=== PATIENT | female | born 2000 | race Caucasian/White ===

== ENCOUNTER 2021-05-25 11:50 | Observation (INO) | payer SELFPAY ==
[2021-05-25] VITALS (8 sets, daily range): BP systolic 79–113; BP diastolic 47–70; PULSE 66–87; TEMP 97.7–98
[~2021-05-25 11:50] MED LIST: IBU800 M1 PO; MACROBID 1100 MG/CAP PO; NEXIUM 20MG20 MG PO; PHENERGAN 25 TA25 MG PO
--- NOTE | 2021-05-25 12:36 | NUR ---
PT. AMBULATORY TO UNIT FOR D&C W/ DR. GONG. ESCORTED TO 222, CLEAN GOWN ON, IV PLACED, CONSENTS SIGNED, LR RUNNING. VITALS OBTAINED AND PT. STABLE. NO QUESTIONS AT THIS TIME
--- NOTE | 2021-05-25 13:47 | NUR ---
RN TO ROOM FOR 15M VITAL CHECK. BP FOUND TO BE LOW 79/49. PT. LYING ON SIDE W/ L. ARM IN AIR. BP CUFF IS ON L. AIR. PT. IS SOUND ASLEEP. WILL CONT. TO MONITOR
--- NOTE | 2021-05-25 14:20 | NUR ---
PT. UP TO BR; VOID X1
--- NOTE | 2021-05-25 16:09 | NUR ---
PT. STABLE AFTER 2 HOUR RECOVERY. IV DISCONTINUED AND DISCHARGE PAPERWORK GONE OVER. PT. VERBALIZES UNDERSTANDING AND HAS NO QUESTIONS AT THIS TIME. THIS RN ESCORTED PT. OUT TO ED ENTRANCE VIA WHEELCHAIR, AND PT. IS BEING DRIVEN HOME BY FRIEND. PT. STABLE UPON DISCHARGE
== END 2021-05-25 15:55 | disposition home or self-care (01) ==
LOC: SDCO 11:50 → OB 12:06 → SDCO 12:30 → OB 13:20
PROVIDERS: ADMIT Obstetrics & Gynecology
DX: O03.4 Incomplete spontaneous abortion without complication (principal); Z79.899 Other long term (current) drug therapy; Z83.3 Family history of diabetes mellitus; Z82.3 Family history of stroke
CPT/HCPCS: J1885; J2405; J2704; J2791; J3010; J7120